=== PATIENT | female | born 1950 | race Caucasian/White ===

== ENCOUNTER 2023-03-22 06:18 | Inpatient (IN) ==
--- NOTE | 2023-03-16 11:58 | Anesthesiology Consultation ---
Date of Service March 16, 2023 Assessment & Plan (1) Encounter for pre-operative examination: Plan - awaiting surgeon ordered medical clearance. PAT testing to be faxed to PCP. - Per filler operator on 03/16/2023: No known infectious disease contacts, current i nfectious disease symptoms in past 10 days or COVID positive test result in the past 90 days. Chart Review Chart Review: Pending: Refer to Additional Notes / Consult section and Patient NOT seen in Pre Admission Testing History Surgery Operation Date: 03/22/23 07:45 Proposed Procedures p L1-L2 Decompression and Fusion with Spinal Cord Monitoring - Gabo Varela DO Height/Weight Height: 5 ft 1 in Weight: 78.471 kg Allergies Allergy/AdvReac Type Severity Reaction Status Date / Time Sulfa (Sulfonamide Allergy Unknown HIVES Verified 03/16/23 11:21 Antibiotics) Medications Home Medications Medication Instructions Recorded Confirmed Last Taken allopurinol 100 mg tablet 100 mg PO BID 02/19/23 03/16/23 02/19/23 aspirin 81 mg chewable tablet 81 mg PO QAM 02/19/23 03/16/23 02/19/23 bupropion HCl 150 mg tablet,12 hr 150 mg PO BID 02/19/23 03/16/23 02/19/23 sustained-release ezetimibe 10 mg tablet 10 mg PO QPM 02/19/23 03/16/23 02/19/23 lisinopril 10 mg tablet 10 mg PO QAM 02/19/23 03/16/23 02/19/23 simvastatin 40 mg tablet 40 mg PO HS 02/19/23 03/16/23 02/18/23 terbinafine HCl 250 mg tablet 250 mg PO QAM 02/19/23 03/16/23 02/19/23 baclofen 10 mg tablet 10 mg PO BID PRN Back Pain 02/22/23 03/16/23 Unknown diclofenac sodium 1 % topical gel 4 g topical UD PRN Pain 02/22/23 03/16/23 Unknown tramadol 50 mg tablet 50 mg PO TID PRN Pain 02/22/23 03/16/23 02/22/23 calcium 600 mg capsule 600 mg PO BID 03/16/23 03/16/23 Unknown omega-3 fatty acids 1,000 mg PO QPM 03/16/23 03/16/23 Unknown Past Medical History Medical History (Updated 03/16/23 @ 11:56 by Rosie Yi PA-C) CKD (chronic kidney disease) Depression Dyslipidemia Gout hx History of COVID-2020 Hypertension Lumbar disc herniation Toenail fungus improving with med- /f/u on mar 30 2023. Past Family History Family History Sister Family history of diabetes mellitus Brother Family history of diabetes mellitus Past Surgical History Surgical History H/O section x2 History of appendectomy History of cholecystectomy History of colonoscopy History of lumbar laminectomy History of right oophorectomy Social History Smoking Status: Former smoker Do You Dip or Chew Tobacco: No Smoking End Date: 25 yr ago Hx Alcohol Use: No Hx Substance Use: No substance use type: does not use Lab Results Anesthesia Preop Results Results Anesthesia Widget: WBC 10.83 K/ul (4.8-10.8) H 03/15/23 Hgb 12.4 g/dl (12.0-16.0) 03/15/23 Hct 36.7 % (37.0-47.0) L 03/15/23 Plt 243 K/uL (130-400) 03/15/23 Na 140 mmol/L (136-145) 03/15/23 K 4.1 mmol/L (3.5-5.1) 03/15/23 Cl 106 mmol/L (98-107) 03/15/23 CO2 27 mmol/L (21-32) 03/15/23 BUN 38 mg/dl (6-23) H 03/15/23 Creat 1.52 mg/dl (0.6-1.2) H 03/15/23 Glucose Level 104 mg/dl (70-99(Fasting)) H 03/15/23 PT 10.3 Seconds (9.0-12.0) 03/15/23 PTT 22.5 Seconds (21.0-31.0) 03/15/23 INR 0.9 (0.9-1.1) 03/15/23 Urine Color Yellow 03/15/23 Urine Appearance Slightly Cloudy (Clear) 03/15/23 Urine pH 5.5 (4.5-7.5) 03/15/23 Urine Specific [place] 1.020 (1.000-1.030) 03/15/23 Urine Protein Negative (Negative) 03/15/23 Urine Glucose (UA) Negative (Negative) 03/15/23 Urine Ketones Trace (Negative) H 03/15/23 Urine Blood Trace-intact (Negative) H 03/15/23 Urine Nitrite Negative (Negative) 03/15/23 Urine Bilirubin Negative (Negative) 03/15/23 Urine Urobilinogen Negative (Negative) 03/15/23 Urine Leukocyte Esterase 1+ (Negative) H 03/15/23 Urine WBC (Auto) 1-5 /hpf (0-5) 02/22/23 Urine RBC (Auto) 0-4 /hpf (0-4) 02/22/23 Urine Hyaline Casts (Auto) 0 /lpf (0-5) 02/22/23 Urine Epithelial Cells (Auto) >30 /lpf (0-5) H 02/22/23 Urine Bacteria (Auto) Negative (Negative) 02/22/23 Blood Type A Positive 03/15/23 Antibody Screen NEGATIVE 03/15/23 Testing Electrocardiogram Date: 03/15/23 NSR, rate 91 bpm Chest X-Ray Date: 03/15/23 No active disease in the chest Other Testing Abdomen pelvis CT 02/19/23 1. No bowel wall thickening or obstruction. 2. Colonic diverticulosis. No evidence for acute diverticulitis. 3. Prior cholecystectomy and appendectomy.
[~2023-03-22 06:18] MED LIST: ACETAMINOPHEN 500 MG TAB PO SCH; GABAPENTIN 300 MG CAP PO SCH; LR 60ML/HR IV SCH; SODIUM CHLORIDE 0.9% 1000ML IV SCH; ceFAZolin 2000MG 2,000 MG/15 ML SYR IV SCH
[2023-03-22] MEDS ORDERED: MIDAZOLAM HCL 1 MG/ML 2ML VIAL ONE (07:01)
[2023-03-22] MEDS ORDERED: PROMETHAZINE HCL 12.5 MG in SODIUM CHLORIDE 0.9% 50 ML IV PRN ×2 (07:01→10:53)
[2023-03-22] MEDS ORDERED: fentaNYL citrate PF 100 MCG/2 ML VIAL ONE (07:01)
[2023-03-22] MEDS ORDERED: fentaNYL citrate PF 100 MCG/2 ML VIAL IV PRN (07:01)
[2023-03-22] MEDS ORDERED: ATROPINE SULFATE 0.1 MG/ML 10ML SYR IV PRN (07:01)
[2023-03-22] MEDS ORDERED: ROCURONIUM BROMIDE 10 MG/ML 5 ML VIAL IV ONE (07:01)
[2023-03-22] MEDS ORDERED: PROPOFOL IV EMULSION 10 MG/ML 20 ML VIAL IV ONE (07:01)
[2023-03-22] MEDS ORDERED: NALOXONE HCL 0.4 MG/1 ML VIAL/CARP IV PRN ×2 (07:01→10:53)
[2023-03-22] MEDS ORDERED: ePHEDrine sulfate 50 MG/ML AMP IV PRN (07:01)
[2023-03-22] MEDS ORDERED: LIDOCAINE 2% 2 ML VIAL/AMP(20MG/ML) INFIL ONE (07:01)
[2023-03-22] MEDS ORDERED: KETAMINE 50 MG/5 ML SYRINGE ONE ×2 (07:04→09:57)
[2023-03-22] MEDS ORDERED: FAMOTIDINE/PF 20 MG/2 ML VIAL IV ONE (07:05)
[2023-03-22] MEDS ORDERED: BUPIVACAINE/EPINEPHRINE 0.25% 1:200,000 30 ML VIAL ONE (07:13)
[2023-03-22] MEDS ORDERED: ceFAZolin 330 MG/ML 1 GM VIAL ONE (07:13)
--- NOTE | 2023-03-22 07:53 | History & Physical Bridge Note ---
Date of Service March 22, 2023 History & Physical Bridge Note I have examined the patient, reviewed the History & Physical and in the interval since the performance of the History & Physical I have noted the following changes of clinical significance: no changes noted
--- NOTE | 2023-03-22 07:54 | History & Physical Report ---
Date of Service March 22, 2023 Assessment & Plan (1) Lumbar disc herniation with radiculopathy: Plan: L1-L2 decompression and fusion History of Present Illness Chief Complaint: Back and leg pain Primary Care Provider: Reggie Liz This is a 72-year-old female presents with chronic persistent back and leg pain after failing course of nonoperative care is here for surgical invention. Allergies Allergy/AdvReac Type Severity Reaction Status Date / Time Sulfa (Sulfonamide Allergy Unknown HIVES Verified 03/16/23 11:21 Antibiotics) Home Medications Medication Instructions Recorded Confirmed Type allopurinol 100 mg tablet 100 mg PO BID 02/19/23 03/22/23 History aspirin 81 mg chewable tablet 81 mg PO QAM 02/19/23 03/22/23 History bupropion HCl 150 mg tablet,12 hr 150 mg PO BID 02/19/23 03/22/23 History sustained-release ezetimibe 10 mg tablet 10 mg PO QPM 02/19/23 03/22/23 History lisinopril 10 mg tablet 10 mg PO QAM 02/19/23 03/22/23 History simvastatin 40 mg tablet 40 mg PO HS 02/19/23 03/22/23 History baclofen 10 mg tablet 10 mg PO BID PRN Back Pain 02/22/23 03/22/23 History diclofenac sodium 1 % topical gel 4 g topical UD PRN Pain 02/22/23 03/22/23 History tramadol 50 mg tablet 50 mg PO TID PRN Pain 02/22/23 03/22/23 History calcium 600 mg capsule 600 mg PO BID 03/16/23 03/22/23 History omega-3 fatty acids 1,000 mg PO QPM 03/16/23 03/22/23 History Past Med/Surg History Medical History (Updated 03/22/23 @ 07:53 by Gabo Varela DO) CKD (chronic kidney disease) Depression Dyslipidemia Gout hx History of COVID-2020 Hypertension Lumbar disc herniation Toenail fungus improving with med- /f/u on mar 30 2023. Surgical History H/O section x2 History of appendectomy History of cholecystectomy History of colonoscopy History of lumbar laminectomy History of right oophorectomy Family History Sister Family history of diabetes mellitus Brother Family history of diabetes mellitus Social History Smoking Status: Former smoker Tobacco Type: Cigarettes Smoking End Date: 25 yr ago; Do You Dip or Chew Tobacco: No; Hx Alcohol Use: No Hx Substance Use: No Preferred Language: Tamaz[place] Communication Ability: Effective Tube And Rod Straightener Required: No Beliefs That Will Affect Care: None Current Living Situation: Spouse and Family Current Living Situation Comment: daughter and great grandson current occupational status: retired Feels Safe at Home: Yes Assistive Devices: Glasses and Other Assistive Devices Comment: partial upper Physical Exam Physical Exam: Patient is alert and oriented Heart regular rhythm Lungs clear Results & Data Results & Data Vital Signs (Past 12 Hours) Vital Signs Temp Pulse Resp BP Pulse Ox O2 Del Method 03/22/23 06:46 36.6 C 92 H 20 132/81 99 Room Air
[2023-03-22] MEDS ORDERED: ONDANSETRON INJ 2 MG/ML 2 ML VIAL ONE ×2 (08:26→09:25)
[2023-03-22] MEDS ORDERED: DEXAMETHASONE SOD INJ 4 MG/ML VIAL ONE (08:26)
[2023-03-22] MEDS ORDERED: HYDROmorphone INJ 2 MG/ML SYR/VIAL ONE (08:37)
[2023-03-22] MEDS ORDERED: FLOSEAL HEMOSTATIC MATRIX 10ML TOP ONE (09:00)
[2023-03-22] MEDS ORDERED: SURGICEL ABSORB HEMOSTAT 2IN X 14IN TOP ONE (09:01)
[2023-03-22] MEDS ORDERED: SUGAMMADEX SODIUM 200 MG/2 ML VIAL IV ONE (09:24)
--- NOTE | 2023-03-22 09:41 | Operative Report ---
Post Operative Report Pre & Post Diagnosis Operation Date: 03/22/23 07:45 Pre-Op Diagnosis: Intervertebral Disc Disorders with Radiculopathy Post-Op Diagnosis: Intervertebral Disc Disorders with Radiculopathy I identified the patient and participated in the time-out.: Yes Procedure Operation Date: 03/22/23 07:45 Actual Procedures 1. Lumbar decompression bilaterally facetectomies and foraminotomies L1-L2. #2 posterior spinal fusion L1-L2. #3 placed posterior instrumentation L1-L2. #4 placement interbody fusion L1-L2. #5 placement of Spira 11 x 26 mm cage at L1- L2. #6 placement locally harvested morselized autograft and posterior gutters. #7 placement of I factor in the interbody space and infuse collagen sponge bone mass graft in the posterior lateral gutters. Surgeon Gabo Varela, Pig Caster none Estimated Blood Loss 200 Findings Consistent with Post-Op Diagnosis Specimens None Indications This is a 72-year-old female presents with above-mentioned diagnosis with failing course of nonoperative care is here for surgical invention Description of Procedure Patient was met with identified informed consent obtained. Patient was then taken to the operative suite underwent a patient placed in a prone position on the [place] table top [place] frame. All bony prominences well-padded eyes inspected to ensure no external pressure placed upon the. This point the lumbar spine was prepped and draped in a sterile fashion. Sharp dissection with the assistance of Bovie cautery to form down to and exposing the lamina transverse processes of L1-L2. From caudal to cephalad fashion complete laminectomy of L1 was performed including bilaterally facetectomies and foraminotomies identifying a massive disc herniation occupying the lateral recess entire foramen of L1-2 on the left. This did require complete facetectomy to adequately and safely with identified removal of fragments. After complete decompression and removal of discrimination pedicle screws were placed in L1-L2 bilaterally with assistance of fluoroscopy and the properly sized yuko placed. By way of transforaminal approach on the left pleat discectomy was performed endplates curetted to subcortical bleeding bone and a 11 x 26 mm Spira cage with I factor tapped in position. The rods then compressed locked in final position bilaterally. The transverse processes of L1 and L2 burred to subcortically bone. Infuse collagen sponge bone mass graft placed in the posterior gutters. 15 round TARA inserted. The incision was then closed with 1 Vicryl to fascia 2-0 Vicryl subcutaneously and 4 Monocryl for final skin closure. Steri-Strips sterile dressing placed. Patient awakened taken to PACU in stable condition. Please note spinal cord monitoring was utilized at the procedure no changes noted. I attest to the content of the Intraoperative Record and any orders documented therein. Any exceptions are noted below.
--- NOTE | 2023-03-22 10:34 | Anesthesiology Progress Note ---
Date of Service March 22, 2023 Anesthesia Post Procedure Vital Signs Vital Signs: Temp Pulse Pulse Resp BP BP Pulse Ox 03/22/23 10:30 36.4 C L 83 14 116/60 98 03/22/23 10:20 78 14 116/68 98 03/22/23 10:10 80 14 122/71 98 03/22/23 10:00 80 14 122/65 100 03/22/23 09:50 80 16 125/65 99 03/22/23 09:48 36.3 C L 83 16 119/76 99 03/22/23 06:46 36.6 C 92 H 20 132/81 99 O2 Del Method O2 Flow Rate 03/22/23 10:30 Nasal Cannula 3 03/22/23 10:20 Nasal Cannula 3 03/22/23 10:10 Oxymask 6 03/22/23 10:00 Oxymask 6 03/22/23 09:50 Oxymask 6 03/22/23 09:48 Oxymask 6 03/22/23 06:46 Room Air Pain Intensity Back: Pain Intensity: 5 Transfer of Care Handoff Completed per policy Notes Mental Status: alert / awake / arousable Patient Amnestic to Procedure: Yes Nausea / Vomiting: adequately controlled Pain: adequately controlled Airway Patency, RR, SpO2: stable & adequate BP & HR: stable & adequate Hydration State: stable & adequate Anesthetic Complications: no major complications apparent and Pt Satisfied with anesthetic care
[2023-03-22] MEDS ORDERED: ONDANSETRON 4 MG OD TAB PO PRN (10:53)
[2023-03-22] MEDS ORDERED: MAGNESIUM HYDROXIDE SUSP 30 ML UDC PO PRN (10:53)
[2023-03-22] MEDS ORDERED: ALUMINUM/MAGNESIUM SUSP 30 ML UDC PO PRN (10:53)
[2023-03-22] MEDS ORDERED: LORazepam 2 MG/1 ML VIAL IV PRN (10:53)
[2023-03-22] MEDS ORDERED: DO NOT ADMINISTER PNEUMOCOCCAL VACCINE PRN (10:53)
[2023-03-22] MEDS ORDERED: DO NOT ADMINISTER FLU VACCINE PRN (10:53)
[2023-03-22] MEDS ORDERED: hydrOXYzine HCl 25 MG TAB PO PRN (10:53)
[2023-03-22] MEDS ORDERED: METOCLOPRAMIDE HCL INJ 5 MG/ML 2 ML VIAL IV PRN (10:53)
[2023-03-22] MEDS ORDERED: HYDROmorphone INJ 0.5 MG/0.5 ML SYR IV PRN (10:53)
[2023-03-22] MEDS ORDERED: FAMOTIDINE 20 MG TAB PO PRN (10:53)
[2023-03-22] MEDS ORDERED: SOD PHOSPHATE/SOD BIPHOSPHATE ENEMA 132 ML BTL PR PRN (10:53)
[2023-03-22] MEDS ORDERED: diphenhydrAMINE Capsule 25 MG CAP PO PRN (10:53)
[2023-03-22] MEDS ORDERED: LORazepam 0.5 MG TAB PO PRN (10:53)
[2023-03-22] MEDS ORDERED: ONDANSETRON INJ 2 MG/ML 2 ML VIAL IV PRN (10:53)
[2023-03-22] MEDS ORDERED: bisacodyL 10 MG SUPP PR PRN (10:53)
[2023-03-22] MEDS: LACTATED RINGER'S 1,000 ML IV SCH ×2 (11:05→19:56)
--- NOTE | 2023-03-22 11:07 | Consultation ---
Date of Consultation March 22, 2023 Assessment & Plan (1) Lumbar disc herniation with radiculopathy: (2) Hypertension: (3) Dyslipidemia: (4) Depression: (5) Gout: (6) VANESSA (acute kidney injury): Plan Ms. Duran is a 72 year old female that presents to the [facility] for planned surgical procedure under the care of Dr. Varela; decompression and fusion of L1-L2 after failed conservative management as an outpatient. Intraoperatively, EBL 200 mL. Additional past medical history includes HTN, HLD, depression, and gout. Patient underwent additional decompression and fusion L4-L5 10 years ago under the care of Dr. Gracia. AVNESSA noted on pre op labs from 03/15/23; creatinine 1.53. Up until surgery patient was taking tramadol and Voltaren gel for conservative treatment measures. Patient denies headache, dizziness, visual or auditory changes, nausea, vomiting, diarrhea, abdominal pain, recent falls or trauma. Patient patient sitting upright in her hospital bed in no apparent distress. AAOx4. Able to answer questions appropriately. TARA drain x1 with morgan red bloody output. Tolerated clear liquid diet. Is not passing gas, but has Ax4 bowel sounds. Lumbar disc herniation with radiculopathy: POD#0 s/p decompression and fusion L1-L2 under the care of Dr. Varela. Per ortho for pain control, wound care, anticoagulation and activities. Monitor H&H, EBL 200 mL; baseline Hgb from 03/15/23 pre op 12.4 continue incentive spirometry, demonstrated appropriate use PT/OT when appropriate HTN: Takes lisinopril; will hold due to VANESSA and soft post op BP Post op BP 96/52 VANESSA: Creatinine pre op 1.53; will trend in AM IV Fluids infusing post op Hold nephrotoxic agents; including Lisinopril HLD: Takes Zetia and simvastatin Depression: Takes Wellbutrin; continue Gout: Takes allopurinol; continue Disposition: PCP: Dr. Reggie Liz CODE STATUS: Full code VTE prophylaxis: Per admitting team I spent a total of 60 minutes coordinating, documenting, and providing care for this patient excluding time spent in the performance of separately billed services. All of the aforementioned completed while collaborating with the assigned attending physician for a full treatment plan. Please see their addendum for further details. Supervising Physician Co-Signing Physician Notes 72yoF with PMhx significant for HTN, HLD, Gout and Depression s/p decompression and fusion L1-L2. Pt resting comfortably, states her pain is well controlled. VANESSA with hypotension noted- IV fluids and holding home DAVID Continue other home medications for Gout, Depression and HLD. Otherwise as above. History of Present Illness Requesting Physician: Dr. Varela Reason for Consultation: post op medical management Attending Physician: Gabo Varela, DO History of Present Illness Ms. Duran is a 72 year old female that presents to the [facility] for planned surgical procedure under the care of Dr. Varela; decompression and fusion of L1-L2 after failed conservative management as an outpatient. Intraoperatively, EBL 200 mL. Additional past medical history includes HTN, HLD, depression, and gout. Patient underwent additional decompression and fusion L4-L5 10 years ago under the care of Dr. Garcia. VANESSA noted on pre op labs from 03/15/23; creatinine 1.53. Up until surgery patient was taking tramadol and Voltaren gel for conservative treatment measures. Patient denies headache, dizziness, visual or auditory changes, nausea, vomiting, diarrhea, abdominal pain, recent falls or trauma. Patient patient sitting upright in her hospital bed in no apparent distress. AAOx4. Able to answer questions appropriately. TARA drain x1 with morgan red bloody output. Tolerated clear liquid diet. Is not passing gas, but has Ax4 bowel sounds. [facility] hospitalist service was consulted for postoperative medical management. We are available 28/02 via [place] text for any additional assistance or information. Thank you kindly for this consultation. Allergies Allergy/AdvReac Type Severity Reaction Status Date / Time Sulfa (Sulfonamide Allergy Unknown HIVES Verified 03/16/23 11:21 Antibiotics) Home Medications Medication Instructions Recorded Confirmed Type allopurinol 100 mg tablet 100 mg PO BID 02/19/23 03/22/23 History aspirin 81 mg chewable tablet 81 mg PO QAM 02/19/23 03/22/23 History bupropion HCl 150 mg tablet,12 hr 150 mg PO BID 02/19/23 03/22/23 History sustained-release ezetimibe 10 mg tablet 10 mg PO QPM 02/19/23 03/22/23 History lisinopril 10 mg tablet 10 mg PO QAM 02/19/23 03/22/23 History simvastatin 40 mg tablet 40 mg PO HS 02/19/23 03/22/23 History baclofen 10 mg tablet 10 mg PO BID PRN Back Pain 02/22/23 03/22/23 History diclofenac sodium 1 % topical gel 4 g topical UD PRN Pain 02/22/23 03/22/23 History tramadol 50 mg tablet 50 mg PO TID PRN Pain 02/22/23 03/22/23 History calcium 600 mg capsule 600 mg PO BID 03/16/23 03/22/23 History omega-3 fatty acids 1,000 mg PO QPM 03/16/23 03/22/23 History Patient History Medical History (Updated 03/22/23 @ 14:00 by HILDA Newby) VANESSA (acute kidney injury) CKD (chronic kidney disease) Depression Dyslipidemia Gout hx History of COVID-2020 Hypertension Lumbar disc herniation Toenail fungus improving with med- /f/u on mar 30 2023. Surgical History H/O section x2 History of appendectomy History of cholecystectomy History of colonoscopy History of lumbar laminectomy History of right oophorectomy Family History Sister Family history of diabetes mellitus Brother Family history of diabetes mellitus Social History Smoking Status: Former smoker Tobacco Type: Cigarettes Smoking End Date: 25 yr ago; Do You Dip or Chew Tobacco: No; Hx Alcohol Use: No Hx Substance Use: No Preferred Language: Sinhala Communication Ability: Effective Clinical Phlebotomist Required: No Beliefs That Will Affect Care: None Current Living Situation: Spouse and Family Current Living Situation Comment: daughter and great grandson current occupational status: retired Feels Safe at Home: Yes Assistive Devices: Glasses and Other Assistive Devices Comment: partial upper Review of Systems Review of Systems: Neuro: (-) Falls, trauma, slurred speech HEENT: (-) DAVIS, dizziness, dysphagia, visual or auditory changes CV: (-) CP, palpitations, swelling Resp: (-) SOB GI: (-) appetite changes, N/V/D, bowel changes : (-) urinary changes Skin: (-) rashes Psych: (-) anxiety, depression Physical Exam Physical Exam: Neuro: AAOx4, PERRLA, no aphagia, memory changes, CNII-XII grossly intact (-) neuropathy HEENT: head normocephalic, moist mucus membranes CV: S1/S2, (-) M/G/R, (-) edema, cap refill < 3 seconds Resp: Lungs CTA in all zavala. On RA GI: Abdomen S/NT/ND, Ax4 bowel sounds, (-) CVA tenderness Musculoskeletal: 5/5 B/L UE strength, 5/5 B/L LE strength. No gait disturbance Skin: (-) rashes , (-) erythema. Lower back vertical incision with intact dressing. Psych: euthymic mood Results & Data Vital Signs (Past 12 Hours) Vital Signs Temp Pulse Pulse Resp BP BP Pulse Ox 03/22/23 10:30 36.4 C L 83 14 116/60 98 03/22/23 10:20 78 14 116/68 98 03/22/23 10:10 80 14 122/71 98 03/22/23 10:00 80 14 122/65 100 03/22/23 09:50 80 16 125/65 99 03/22/23 09:48 36.3 C L 83 16 119/76 99 03/22/23 06:46 36.6 C 92 H 20 132/81 99 O2 Del Method O2 Flow Rate 03/22/23 10:30 Nasal Cannula 3 03/22/23 10:20 Nasal Cannula 3 03/22/23 10:10 Oxymask 6 03/22/23 10:00 Oxymask 6 03/22/23 09:50 Oxymask 6 03/22/23 09:48 Oxymask 6 03/22/23 06:46 Room Air Diagnostic Findings Lumbar Spine X-Ray 03/22/23 00:00 FL lumbar spine 2-3V CLINICAL HISTORY: L1-L2 DECOMP AND FUSION COMPARISON STUDY: Lumbar spine MRI 02/22/2023. FLUOROSCOPY TIME: 24 seconds FLUOROSCOPY IMAGES: 2 Ka,r: 16.4 mGy FINDINGS: Posterior decompression and fusion at L1-L2 with pedicle screws and rods. The hardware appears intact. The disc spacer is in place. IMPRESSION: Fluoroscopic assistance as above. ACT 112: Negative or not required by law. Electronically signed by: Enrique Nielsen M.D. 03/22/2023 12:30 PM
--- NOTE | 2023-03-22 12:32 | Fluoroscopy Report ---
FL lumbar spine 2-3V CLINICAL HISTORY: L1-L2 DECOMP AND FUSION COMPARISON STUDY: Lumbar spine MRI 02/22/2023. FLUOROSCOPY TIME: 24 seconds FLUOROSCOPY IMAGES: 2 Ka,r: 16.4 mGy FINDINGS: Posterior decompression and fusion at L1-L2 with pedicle screws and rods. The hardware appe ars intact. The disc spacer is in place. IMPRESSION: Fluoroscopic assistance as above. ACT 112: Negative or not required by law. Electronically signed by: Enrique Nielsen M.D. 03/22/2023 12:30 PM
[2023-03-22] MEDS: oxyCODONE HCL IR 5 MG TAB (IMMEDIATE RELEASE) PO PRN ×3 (13:21→23:54)
[2023-03-22] MEDS ORDERED: ACETAMINOPHEN 1,000 MG/100 ML VIAL IV PRN (14:00)
[2023-03-22] MEDS: HYDROmorphone INJ 1 MG/ML SYRINGE IV PRN (16:46)
[2023-03-22] MEDS: ceFAZolin 2000MG 2,000 MG/15 ML SYR IV SCH ×2 (16:46→23:17)
[2023-03-22] MEDS: SIMVASTATIN 40 MG TAB PO SCH (19:54)
[2023-03-22] MEDS: DOCUSATE SODIUM/SENNA 50/8.6MG TAB PO SCH (19:55)
[2023-03-22] MEDS: CALCIUM CARBONATE 1250MG TAB PO SCH (19:55)
[2023-03-22] MEDS: EZETIMIBE 10 MG TAB PO SCH (19:55)
[2023-03-22] MEDS: allopurinoL 100 MG TAB PO SCH (19:55)
[2023-03-22] MEDS: buPROPion SR 150 MG TABCR PO SCH (19:56)
[2023-03-23] MEDS: HYDROmorphone INJ 1 MG/ML SYRINGE IV PRN (02:11)
[2023-03-23] MEDS: POLYETHYLENE (MIRALAX) 17 GM PACK PO SCH ×4 (06:26→23:07)
[2023-03-23 07:38] LABS: Basophils # (auto) 0.01 K/uL (0-0.2); Basophils % (auto) 0.1 %; Eosinophils # (auto) 0.01 K/uL (0-0.50); Eosinophils % (auto) 0.1 %; Hematocrit (blood only) 28.1 % (37.0-47.0); Hemoglobin 9.5 g/dl (12.0-16.0); Immature Granulocytes # (auto) 0.08 K/uL (0.01-0.20); Immature Granulocytes % (auto) 0.7 %; Lymphocytes # (auto) 1.41 K/uL (1.2-3.4); Lymphocytes % (auto) 12.8 %; Mean Corpuscular Hemoglobin 31.6 pg (25.0-34.0); Mean Corpuscular Hgb Conc 33.8 g/dL (32.0-36.0); Mean Corpuscular Volume 93.4 fL (80.0-100.0); Mean Platelet Volume 10.4 fL (9.4-12.4); Monocytes % (auto) 5.4 %; Neutrophils # (auto) 8.94 K/uL (1.40-6.50); Neutrophils % (auto) 80.9 %; Platelet Count 213 K/uL (130-400); RDW Coefficient of Variation 13.2 % (11.5-14.5); RDW Standard Deviation 45.9 fL (36.4-46.3); Red Blood Count 3.01 M/uL (4.20-5.40); White Blood Count 11.05 K/ul (4.8-10.8)
[2023-03-23 07:56] LABS: BUN Creatinine Ratio 26.5 (10-20); Calcium 8.7 mg/dl (8.6-10.3); Creatinine Clr Calc Pharmacy 49.3 ml/min; Est GFR (African American) 66.8 ml/min; Est GFR (Non-African American) 57.6 ml/min; Potassium 4.4 mmol/L (3.5-5.1)
[2023-03-23] MEDS: LACTATED RINGER'S 1,000 ML IV SCH (08:00)
--- NOTE | 2023-03-23 08:00 | Hospitalist Progress Note ---
Date of Service March 23, 2023 Assessment & Plan (1) Lumbar disc herniation with radiculopathy: (2) Hypertension: (3) Dyslipidemia: (4) Depression: (5) Gout: (6) VANESSA (acute kidney injury): Plan Ms. Duran is a 72 year old female that presents to the [facility] for planned surgical procedure under the care of Dr. Varela; decompression and fusion of L1-L2 after failed conservative management as an outpatient. Intraoperatively, EBL 200 mL. Additional past medical history includes HTN, HLD, depression, and gout. Patient underwent additional decompression and fusion L4-L5 10 years ago under the care of Dr. Garcia. VANESSA noted on pre op labs from 03/15/23; creatinine 1.53. Up until surgery patient was taking tramadol and Voltaren gel for conservative treatment measures. Lumbar disc herniation with radiculopathy: s/p decompression and fusion L1-L2 under the care of Dr. Varela. Per ortho for pain control, wound care, anticoagulation and activities. continue incentive spirometry, demonstrated appropriate use PT/OT when appropriate HTN: Takes lisinopril; will hold due to VANESSA and lower BP Post op BP 96/52 now 102/62 VANESSA: Creatinine pre op 1.53; now Cr back to baseline (<1) received IV Fluids post op Hold nephrotoxic agents; including Lisinopril HLD: Takes Zetia and simvastatin Depression: Takes Wellbutrin; continue Gout: Takes allopurinol; continue Disposition: PCP: Dr. Reggie Liz CODE STATUS: Full code VTE prophylaxis: Per admitting team Admission and Anticipated Discharge Date Admission Date: March 22, 2023 Subjective Pt seen in follow up of med consult for s/p lumbar spinal surgery Currently sitting up in chair in NAD reports some back pain, especially when standing up, but says when walking does not have much pain Denies any fever, chills, chest pain, shortness of breath or abd. pain Review of Systems Review of Systems: All systems reviewed & are unremarkable except as noted in Subjective Physical Exam Physical Exam: General: elderly F in NAD HEENT: head normocephalic, moist mucus membranes CV: S1/S2, (-) M/G/R, (-) edema Resp: Lungs CTA in all zavala. On RA GI: Abdomen S/NT/ND, Ax4 bowel sounds, (-) CVA tenderness Musculoskeletal: 5/5 B/L UE strength, 5/5 B/L LE strength. No gait disturbance Neuro: AAOx4, PERRL, speech fluent, no facial asymmetry, moves extremities Skin: (-) rashes , (-) erythema. Lower back w/intact dressing. Psych: euthymic mood Results & Data Results & Data Vital Signs (Past 12 Hours) Vital Signs Temp Pulse Resp BP Pulse Ox O2 Del Method 03/23/23 07:32 36.9 C 89 15 102/62 99 Room Air 03/23/23 03:32 36.8 C 95 H 18 124/68 95 Room Air 03/22/23 23:00 36.8 C 97 H 18 125/74 93 Room Air 03/22/23 20:31 Room Air Laboratory Results 03/23/23 03/23/23 Range/Units 06:57 06:57 WBC 11.05 H (4.8-10.8) K/ul RBC 3.01 L (4.20-5.40) M/uL Hgb 9.5 L (12.0-16.0) g/dl Hct 28.1 L (37.0-47.0) % MCV 93.4 (80.0-100.0) fL MCH 31.6 (25.0-34.0) pg MCHC 33.8 (32.0-36.0) g/dL RDW Std Deviation 45.9 (36.4-46.3) fL RDW Coeff of Agnieszka 13.2 (11.5-14.5) % Plt Count 213 (130-400) K/uL MPV 10.4 (9.4-12.4) fL Immature Gran % (Auto) 0.7 % Neut % (Auto) 80.9 % Lymph % (Auto) 12.8 % Yates % (Auto) 5.4 % Eos % (Auto) 0.1 % Baso % (Auto) 0.1 % Neut # (Auto) 8.94 H (1.40-6.50) K/uL Lymph # (Auto) 1.41 (1.2-3.4) K/uL Yates # (Auto) 0.60 H (0.11-0.59) K/uL Eos # (Auto) 0.01 (0-0.50) K/uL Baso # (Auto) 0.01 (0-0.2) K/uL Immature Gran # (Auto) 0.08 (0.01-0.20) K/uL Sodium 136 (136-145) mmol/L Potassium 4.4 (3.5-5.1) mmol/L Chloride 105 (98-107) mmol/L Carbon Dioxide 27 (21-32) mmol/L Anion Gap 4 (3-11) BUN 26 H (6-23) mg/dl Creatinine 0.98 (0.6-1.2) mg/dl Est Cr Clr Drug Dosing 49.3 ml/min Est GFR ( Amer) 66.8 ml/min Est GFR (Non-Af Amer) 57.6 ml/min BUN/Creatinine Ratio 26.5 H (10-20) Glucose 132 H (70-99(Fasting)) mg/dl Calcium 8.7 (8.6-10.3) mg/dl Medications Administered Current Inpatient Medications Acetaminophen (Acetaminophen 500 Mg Tab) 1,000 mg PO Q8H PRN PRN Reason: MILD Pain Scale 1,2,3 & Pre PT Stop: 04/21/23 13:59 Al Hydrox/Mg Hydrox/Simethicone (Aluminum/Magnesium Susp 30 Ml Udc) 30 ml PO Q6H PRN PRN Reason: Dyspepsia Stop: 04/21/23 10:52 Allopurinol (Allopurinol 100 Mg Tab) 100 mg PO BID [facility] Stop: 04/21/23 20:59 Last Admin: 03/22/23 19:55 Dose: 100 mg Aspirin (Aspirin 81 Mg Ectab) 81 mg PO QAM [facility] Stop: 04/22/23 08:59 Bisacodyl (Bisacodyl 10 Mg Supp) 10 mg VT DAILY PRN PRN Reason: Constipation Stop: 04/21/23 10:52 Bupropion HCl (Bupropion Sr 150 Mg Tabcr) 150 mg PO BID [facility] Stop: 04/21/23 20:59 Last Admin: 03/22/23 19:56 Dose: 150 mg Calcium Carbonate (Calcium Carbonate 1250mg Tab) 1,250 mg PO BID [facility] Stop: 04/21/23 20:59 Last Admin: 03/22/23 19:55 Dose: 1,250 mg Diphenhydramine HCl (Diphenhydramine Capsule 25 Mg Cap) 25 mg PO Q6H PRN PRN Reason: Allergic Rhinitis/Insomnia Stop: 04/21/23 10:52 Ezetimibe (Ezetimibe 10 Mg Tab) 10 mg PO QPM EDNA Stop: 04/21/23 20:59 Last Admin: 03/22/23 19:55 Dose: 10 mg Famotidine (Famotidine 20 Mg Tab) 20 mg PO Q12H PRN PRN Reason: Dyspepsia Stop: 04/21/23 10:52 Hydromorphone HCl (Hydromorphone Inj 0.5 Mg/0.5 Ml Syr) 0.5 mg IV Q3H PRN PRN Reason: MODERATE Pain (Scale 4,5,6) & Pre PT Stop: 04/05/23 10:52 Hydromorphone HCl (Hydromorphone Inj 1 Mg/Ml Syringe) 1 mg IV Q3H PRN PRN Reason: SEVERE Pain (Scale 7,8,9,10) Stop: 04/05/23 10:52 Last Admin: 03/23/23 02:11 Dose: 1 mg Hydroxyzine HCl (Hydroxyzine Hcl 25 Mg Tab) 25 mg PO Q8H PRN PRN Reason: Anxiety Stop: 04/21/23 10:52 Lactated Ringer's (Lr) 1,000 mls @ 100 mls/hr IV .Q10H EDNA Stop: 04/21/23 10:52 Last Infusion: 03/23/23 06:15 Dose: Infused Promethazine HCl 12.5 mg/ (Sodium Chloride) 50.5 mls @ 202 mls/hr IV Q6H PRN PRN Reason: Nausea &/or Vomiting Stop: 04/21/23 10:52 Acetaminophen (Ofirmev) 1,000 mg in 100 mls @ 400 mls/hr IV Q8H PRN PRN Reason: Pain Rating 1-3 & Pre PT Stop: 03/25/23 13:59 Dexamethasone 6 mg/ Syringe 1.5 mls @ 1 mls/min IV DAILY E[facility] Stop: 03/25/23 09:02 Influenza Virus Vaccine Quadrival (Do Not Administer Flu Vaccine) 1 each N/A PRN PRN PRN Reason: Notification Stop: 04/21/23 10:52 Lisinopril (Lisinopril 10 Mg Tab) 10 mg PO QAM [facility] Stop: 04/22/23 08:59 Lorazepam (Lorazepam 0.5 Mg Tab) 0.5 mg PO Q8H PRN PRN Reason: Sedation/Anxiety Stop: 04/21/23 10:52 Lorazepam (Lorazepam 2 Mg/1 Ml Vial) 0.5 mg IV Q8H PRN PRN Reason: Sedation/Anxiety Stop: 04/21/23 10:52 Magnesium Hydroxide (Magnesium Hydroxide Susp 30 Ml Udc) 30 ml PO Q24H PRN PRN Reason: Constipation Stop: 04/21/23 10:52 Metoclopramide HCl (Metoclopramide Hcl Inj 5 Mg/Ml 2 Ml Vial) 10 mg IV Q6H PRN PRN Reason: Nausea &/or Vomiting Stop: 04/21/23 10:52 Naloxone HCl (Naloxone Hcl 0.4 Mg/1 Ml Vial/Carp) 0.1 mg IV Q5M PRN PRN Reason: Oversedation/Resp depression Stop: 04/21/23 10:52 Ondansetron HCl (Ondansetron Inj 2 Mg/Ml 2 Ml Vial) 4 mg IV Q6H PRN PRN Reason: Nausea &/or Vomiting Stop: 04/21/23 10:52 Ondansetron HCl (Ondansetron 4 Mg Od Tab) 4 mg PO Q6H PRN PRN Reason: Nausea Stop: 04/21/23 10:52 Oxycodone HCl (Oxycodone Hcl Ir 5 Mg Tab (Immediate Release)) 5 - 10 mg PO Q4H PRN PRN Reason: Pain & Pre PT Stop: 04/05/23 10:52 Last Admin: 03/22/23 23:54 Dose: 10 mg Pneumococcal Polyvalent Vaccine (Do Not Administer Pneumococcal Vaccine) 1 each N/A PRN PRN PRN Reason: Notification Stop: 04/21/23 10:52 Polyethylene Glycol (Polyethylene (Miralax) 17 Gm Pack) 17 gm PO Q6 EDNA Stop: 04/22/23 05:59 Last Admin: 03/23/23 06:26 Dose: 17 gm Senna/Docusate Sodium (Docusate Sodium/Senna 50/8.6mg Tab) 2 tab PO HS EDNA Stop: 04/21/23 20:59 Last Admin: 03/22/23 19:55 Dose: 2 tab Simvastatin (Simvastatin 40 Mg Tab) 40 mg PO HS EDNA Stop: 04/21/23 20:59 Last Admin: 03/22/23 19:54 Dose: 40 mg Sodium Biphosphate/Sodium Phosphate (Sod Phosphate/Sod Biphosphate Enema 132 Ml Btl) 132 ml VT ONE PRN PRN Reason: Constipation Stop: 04/21/23 10:52 Tramadol HCl (Tramadol Hcl 50 Mg Tablet) 50 - 100 mg PO Q4H PRN PRN Reason: Moderate-Severe pain & Pre PT Stop: 04/21/23 10:52
[2023-03-23] MEDS: CALCIUM CARBONATE 1250MG TAB PO SCH ×2 (08:31→20:00)
[2023-03-23] MEDS: allopurinoL 100 MG TAB PO SCH ×2 (08:31→20:02)
[2023-03-23] MEDS: dexAMETHasone 6 MG in SYRINGE 0 ML IV SCH (08:31)
[2023-03-23] MEDS: buPROPion SR 150 MG TABCR PO SCH ×2 (08:31→20:01)
[2023-03-23] MEDS: ASPIRIN 81 MG ECTAB PO SCH (08:31)
--- NOTE | 2023-03-23 08:31 | Orthopedic Progress Note ---
Date of Service March 23, 2023 Assessment & Plan (1) Lumbar disc herniation with radiculopathy: Plan: At this time we will initiate physical therapy monitor TARA output hopefully discharge home in the next few days. Admission and Anticipated Discharge Date Admission Date: March 22, 2023 Subjective Back pain controlled leg pain markedly improved Physical Exam Physical Exam: Patient is in the chair at the bedside. She is comfortable. Is constricted testing. Results & Data Vital Signs (Past 12 Hours) Vital Signs Temp Pulse Resp BP Pulse Ox O2 Del Method 03/23/23 07:32 36.9 C 89 15 102/62 99 Room Air 03/23/23 03:32 36.8 C 95 H 18 124/68 95 Room Air 03/22/23 23:00 36.8 C 97 H 18 125/74 93 Room Air 03/22/23 20:31 Room Air
[2023-03-23] MEDS ORDERED: lisinopril 10 MG TAB PO SCH (09:00)
[2023-03-23] MEDS: oxyCODONE HCL IR 5 MG TAB (IMMEDIATE RELEASE) PO PRN ×2 (09:21→19:59)
[2023-03-23] MEDS: ACETAMINOPHEN 500 MG TAB PO PRN (14:57)
[2023-03-23] MEDS: EZETIMIBE 10 MG TAB PO SCH (20:00)
[2023-03-23] MEDS: SIMVASTATIN 40 MG TAB PO SCH (20:00)
[2023-03-23] MEDS: DOCUSATE SODIUM/SENNA 50/8.6MG TAB PO SCH (20:01)
[2023-03-24] MEDS: traMADol HCL 50 MG TABLET PO PRN ×3 (00:24→21:52)
[2023-03-24] MEDS: POLYETHYLENE (MIRALAX) 17 GM PACK PO SCH ×2 (05:47→12:38)
[2023-03-24 08:01] LABS: Hematocrit (blood only) 27.9 % (37.0-47.0); Hemoglobin 9.6 g/dl (12.0-16.0); Mean Corpuscular Hemoglobin 32.4 pg (25.0-34.0); Mean Corpuscular Hgb Conc 34.4 g/dL (32.0-36.0); Mean Corpuscular Volume 94.3 fL (80.0-100.0); Mean Platelet Volume 10.6 fL (9.4-12.4); Platelet Count 219 K/uL (130-400); RDW Coefficient of Variation 13.2 % (11.5-14.5); RDW Standard Deviation 46.3 fL (36.4-46.3); Red Blood Count 2.96 M/uL (4.20-5.40); White Blood Count 10.54 K/ul (4.8-10.8)
--- NOTE | 2023-03-24 08:11 | Orthopedic Progress Note ---
Date of Service March 24, 2023 Assessment & Plan (1) Lumbar disc herniation with radiculopathy: Plan: Patient is stable postoperative day #2. We can continue with pain control. She is on GI DVT prophylaxis and will ambulate with physical therapy today. If all goes well we will get her home tomorrow morning. Admission and Anticipated Discharge Date Admission Date: March 22, 2023 Subjective Patient was seen bedside in room 383. She was somewhat nauseated overnight. She thinks the pain medication was too strong. She does have pain in the back but the legs are doing much better. She has not vomited. She denies any other numbness, tingling, paresthesias Physical Exam Physical Exam: On exam she is alert and oriented. She is sitting comfortably in her chair her strength and sensation are both intact. Her abdomen soft and nontender her calves are supple nontender. Her TARA drain is in place and holding suction. Results & Data Vital Signs (Past 12 Hours) Vital Signs Temp Pulse Resp BP Pulse Ox O2 Del Method 03/24/23 07:12 36.9 C 80 15 121/77 97 Room Air
[2023-03-24 08:33] LABS: BUN Creatinine Ratio 29.6 (10-20); Calcium 9.2 mg/dl (8.6-10.3); Creatinine Clr Calc Pharmacy 49.3 ml/min; Est GFR (African American) 66.8 ml/min; Est GFR (Non-African American) 57.6 ml/min; Magnesium 2.1 mg/dl (1.7-2.4); Potassium 4.2 mmol/L (3.5-5.1)
[2023-03-24] MEDS: CALCIUM CARBONATE 1250MG TAB PO SCH ×2 (08:54→20:49)
[2023-03-24] MEDS: ASPIRIN 81 MG ECTAB PO SCH (08:54)
[2023-03-24] MEDS: dexAMETHasone 6 MG in SYRINGE 0 ML IV SCH (08:54)
[2023-03-24] MEDS: buPROPion SR 150 MG TABCR PO SCH ×2 (08:54→20:49)
[2023-03-24] MEDS: allopurinoL 100 MG TAB PO SCH ×2 (08:54→20:48)
--- NOTE | 2023-03-24 11:43 | Hospitalist Progress Note ---
Date of Service March 24, 2023 Assessment & Plan (1) Lumbar disc herniation with radiculopathy: (2) Hypertension: (3) Dyslipidemia: (4) Depression: (5) Gout: (6) VANESSA (acute kidney injury): Plan Ms. Duran is a 72 year old female that presents to the [facility] for planned surgical procedure under the care of Dr. Varela; decompression and fusion of L1-L2 after failed conservative management as an outpatient. Intraoperatively, EBL 200 mL. Additional past medical history includes HTN, HLD, depression, and gout. Patient underwent additional decompression and fusion L4-L5 10 years ago under the care of Dr. Garcia. VANESSA noted on pre op labs from 03/15/23; creatinine 1.53. Up until surgery patient was taking tramadol and Voltaren gel for conservative treatment measures. Lumbar disc herniation with radiculopathy: s/p decompression and fusion L1-L2 under the care of Dr. Varela. Per ortho for pain control, wound care, anticoagulation and activities. continue incentive spirometry, demonstrated appropriate use PT/OT when appropriate Acute blood loss anemia/ vs. dilutional pre-op hgb 12, post op 9.5 current hgb 9.6 - stable from yesterday HTN: Takes lisinopril; will hold due to VANESSA and lower BP Post op BP 96/52 now 121/77 VANESSA: Creatinine pre op 1.53; now Cr back to baseline (<1) received IV Fluids post op Hold nephrotoxic agents; including Lisinopril HLD: Takes Zetia and simvastatin Depression: Takes Wellbutrin; continue Gout: Takes allopurinol; continue Disposition: PCP: Dr. Reggie Liz CODE STATUS: Full code VTE prophylaxis: Per admitting team Admission and Anticipated Discharge Date Admission Date: March 22, 2023 Subjective Pt seen in follow up of med consult for s/p lumbar spinal surgery Currently sitting up in chair in NAD, eating lunch Overnight w/ nausea - pt believs from pain meds, nausea is now resolved reports some back pain, especially when standing up, but says when walking does not have much pain Denies any fever, chills, chest pain, shortness of breath or abd. pain Review of Systems Review of Systems: All systems reviewed & are unremarkable except as noted in Subjective Physical Exam Physical Exam: General: elderly F in NAD HEENT: head normocephalic, moist mucus membranes CV: S1/S2, (-) M/G/R, (-) edema Resp: Lungs CTA in all zavala. On RA GI: Abdomen S/NT/ND, Ax4 bowel sounds, (-) CVA tenderness Musculoskeletal: 5/5 B/L UE strength, 5/5 B/L LE strength. No gait disturbance Neuro: AAOx4, PERRL, speech fluent, no facial asymmetry, moves extremities Skin: (-) rashes , (-) erythema. Lower back w/intact dressing. Psych: euthymic mood Results & Data Results & Data Vital Signs (Past 12 Hours) Vital Signs Temp Pulse Resp BP Pulse Ox O2 Del Method 03/24/23 07:12 36.9 C 80 15 121/77 97 Room Air Laboratory Results 03/24/23 03/24/23 Range/Units 07:20 07:20 WBC 10.54 (4.8-10.8) K/ul RBC 2.96 L (4.20-5.40) M/uL Hgb 9.6 L (12.0-16.0) g/dl Hct 27.9 L (37.0-47.0) % MCV 94.3 (80.0-100.0) fL MCH 32.4 (25.0-34.0) pg MCHC 34.4 (32.0-36.0) g/dL RDW Std Deviation 46.3 (36.4-46.3) fL RDW Coeff of Agnieszka 13.2 (11.5-14.5) % Plt Count 219 (130-400) K/uL MPV 10.6 (9.4-12.4) fL Sodium 137 (136-145) mmol/L Potassium 4.2 (3.5-5.1) mmol/L Chloride 104 (98-107) mmol/L Carbon Dioxide 28 (21-32) mmol/L Anion Gap 5 (3-11) BUN 29 H (6-23) mg/dl Creatinine 0.98 (0.6-1.2) mg/dl Est Cr Clr Drug Dosing 49.3 ml/min Est GFR ( Amer) 66.8 ml/min Est GFR (Non-Af Amer) 57.6 ml/min BUN/Creatinine Ratio 29.6 H (10-20) Glucose 90 (70-99(Fasting)) mg/dl Calcium 9.2 (8.6-10.3) mg/dl Magnesium 2.1 (1.7-2.4) mg/dl Medications Administered Current Inpatient Medications Acetaminophen (Acetaminophen 500 Mg Tab) 1,000 mg PO Q8H PRN PRN Reason: MILD Pain Scale 1,2,3 & Pre PT Stop: 04/21/23 13:59 Last Admin: 03/23/23 14:57 Dose: 1,000 mg Al Hydrox/Mg Hydrox/Simethicone (Aluminum/Magnesium Susp 30 Ml Udc) 30 ml PO Q6H PRN PRN Reason: Dyspepsia Stop: 04/21/23 10:52 Allopurinol (Allopurinol 100 Mg Tab) 100 mg PO BID [facility] Stop: 04/21/23 20:59 Last Admin: 03/24/23 08:54 Dose: 100 mg Aspirin (Aspirin 81 Mg Ectab) 81 mg PO QAM [facility] Stop: 04/22/23 08:59 Last Admin: 03/24/23 08:54 Dose: 81 mg Bisacodyl (Bisacodyl 10 Mg Supp) 10 mg [place] DAILY PRN PRN Reason: Constipation Stop: 04/21/23 10:52 Bupropion HCl (Bupropion Sr 150 Mg Tabcr) 150 mg PO BID [facility] Stop: 04/21/23 20:59 Last Admin: 03/24/23 08:54 Dose: 150 mg Calcium Carbonate (Calcium Carbonate 1250mg Tab) 1,250 mg PO BID [facility] Stop: 04/21/23 20:59 Last Admin: 03/24/23 08:54 Dose: 1,250 mg Diphenhydramine HCl (Diphenhydramine Capsule 25 Mg Cap) 25 mg PO Q6H PRN PRN Reason: Allergic Rhinitis/Insomnia Stop: 04/21/23 10:52 Ezetimibe (Ezetimibe 10 Mg Tab) 10 mg PO QPM [facility] Stop: 04/21/23 20:59 Last Admin: 03/23/23 20:00 Dose: 10 mg Famotidine (Famotidine 20 Mg Tab) 20 mg PO Q12H PRN PRN Reason: Dyspepsia Stop: 04/21/23 10:52 Hydromorphone HCl (Hydromorphone Inj 0.5 Mg/0.5 Ml Syr) 0.5 mg IV Q3H PRN PRN Reason: MODERATE Pain (Scale 4,5,6) & Pre PT Stop: 04/05/23 10:52 Hydromorphone HCl (Hydromorphone Inj 1 Mg/Ml Syringe) 1 mg IV Q3H PRN PRN Reason: SEVERE Pain (Scale 7,8,9,10) Stop: 04/05/23 10:52 Last Admin: 03/23/23 02:11 Dose: 1 mg Hydroxyzine HCl (Hydroxyzine Hcl 25 Mg Tab) 25 mg PO Q8H PRN PRN Reason: Anxiety Stop: 04/21/23 10:52 Promethazine HCl 12.5 mg/ (Sodium Chloride) 50.5 mls @ 202 mls/hr IV Q6H PRN PRN Reason: Nausea &/or Vomiting Stop: 04/21/23 10:52 Acetaminophen (Ofirmev) 1,000 mg in 100 mls @ 400 mls/hr IV Q8H PRN PRN Reason: Pain Rating 1-3 & Pre PT Stop: 03/25/23 13:59 Dexamethasone 6 mg/ Syringe 1.5 mls @ 1 mls/min IV DAILY [facility] Stop: 03/25/23 09:02 Last Admin: 03/24/23 08:54 Dose: 1 mls/min Influenza Virus Vaccine Quadrival (Do Not Administer Flu Vaccine) 1 each N/A PRN PRN PRN Reason: Notification Stop: 04/21/23 10:52 Lisinopril (Lisinopril 10 Mg Tab) 10 mg PO QAM [facility] Stop: 04/22/23 08:59 Lorazepam (Lorazepam 0.5 Mg Tab) 0.5 mg PO Q8H PRN PRN Reason: Sedation/Anxiety Stop: 04/21/23 10:52 Lorazepam (Lorazepam 2 Mg/1 Ml Vial) 0.5 mg IV Q8H PRN PRN Reason: Sedation/Anxiety Stop: 04/21/23 10:52 Magnesium Hydroxide (Magnesium Hydroxide Susp 30 Ml Udc) 30 ml PO Q24H PRN PRN Reason: Constipation Stop: 04/21/23 10:52 Metoclopramide HCl (Metoclopramide Hcl Inj 5 Mg/Ml 2 Ml Vial) 10 mg IV Q6H PRN PRN Reason: Nausea &/or Vomiting Stop: 04/21/23 10:52 Naloxone HCl (Naloxone Hcl 0.4 Mg/1 Ml Vial/Carp) 0.1 mg IV Q5M PRN PRN Reason: Oversedation/Resp depression Stop: 04/21/23 10:52 Ondansetron HCl (Ondansetron Inj 2 Mg/Ml 2 Ml Vial) 4 mg IV Q6H PRN PRN Reason: Nausea &/or Vomiting Stop: 04/21/23 10:52 Ondansetron HCl (Ondansetron 4 Mg Od Tab) 4 mg PO Q6H PRN PRN Reason: Nausea Stop: 04/21/23 10:52 Oxycodone HCl (Oxycodone Hcl Ir 5 Mg Tab (Immediate Release)) 5 - 10 mg PO Q4H PRN PRN Reason: Pain & Pre PT Stop: 04/05/23 10:52 Last Admin: 03/23/23 19:59 Dose: 10 mg Pneumococcal Polyvalent Vaccine (Do Not Administer Pneumococcal Vaccine) 1 each N/A PRN PRN PRN Reason: Notification Stop: 04/21/23 10:52 Polyethylene Glycol (Polyethylene (Miralax) 17 Gm Pack) 17 gm PO Q6 [facility] Stop: 04/22/23 05:59 Last Admin: 03/24/23 05:47 Dose: 17 gm Senna/Docusate Sodium (Docusate Sodium/Senna 50/8.6mg Tab) 2 tab PO HS [facility] Stop: 04/21/23 20:59 Last Admin: 03/23/23 20:01 Dose: 2 tab Simvastatin (Simvastatin 40 Mg Tab) 40 mg PO HS [facility] Stop: 04/21/23 20:59 Last Admin: 03/23/23 20:00 Dose: 40 mg Sodium Biphosphate/Sodium Phosphate (Sod Phosphate/Sod Biphosphate Enema 132 Ml Btl) 132 ml MI ONE PRN PRN Reason: Constipation Stop: 04/21/23 10:52 Tramadol HCl (Tramadol Hcl 50 Mg Tablet) 50 - 100 mg PO Q4H PRN PRN Reason: Moderate-Severe pain & Pre PT Stop: 04/21/23 10:52 Last Admin: 03/24/23 05:49 Dose: 100 mg
[2023-03-24] MEDS: ACETAMINOPHEN 500 MG TAB PO PRN (12:39)
[2023-03-24] MEDS: oxyCODONE HCL IR 5 MG TAB (IMMEDIATE RELEASE) PO PRN (17:54)
[2023-03-24] MEDS: SIMVASTATIN 40 MG TAB PO SCH (20:48)
[2023-03-24] MEDS: DOCUSATE SODIUM/SENNA 50/8.6MG TAB PO SCH (20:49)
[2023-03-24] MEDS: EZETIMIBE 10 MG TAB PO SCH (20:49)
[2023-03-25] MEDS: oxyCODONE HCL IR 5 MG TAB (IMMEDIATE RELEASE) PO PRN (04:06)
--- NOTE | 2023-03-25 07:48 | Discharge Summary ---
Date of Service March 25, 2023 Admission HPI Per Admitting Provider This is a 72-year-old female presents with chronic persistent back and leg pain after failing course of nonoperative care is here for surgical invention. Discharge Data Consultations 03/22/23 10:53 Consult Hospitalist Routine Procedures Performed Operation Date: 03/22/23 07:45 Actual Procedures p L1-L2 Decompression and Fusion with Spinal Cord Monitoring(Not Applicable) - Gabo Varela, Hospital Course (1) Lumbar disc herniation with radiculopathy: Patient is a pleasant 72-year-old female with history physical examination and radiographic images consistent with the above-mentioned diagnosis. This reason she was brought to the operating room and undergone a lumbar decompression and fusion at L1 to with Dr. Varela. She was then transferred to PACU in stable condition. She left the operating room with TARA drain in place. She was seen by physical therapy in the orthopedic floor postop day #1. Throughout her hospital course her abdomen remained supple and nontender calves remained supple and nontender. She progressed well with physical therapy and on postoperative day 3 she is deemed safe for home discharge. Her discharge instructions were to avoid any full bending at the waist. She should not anything heavier than 5 to [address] not drive until she sees us in the office in approximately 2 weeks. The dressing needs to be changed daily until there is no drainage once there is no drainage she may begin showering. If she develops any increased pain drainage from the incision fevers or chills she will contact our office otherwise she will be seen in 2 weeks.
[2023-03-25] MEDS: dexAMETHasone 6 MG in SYRINGE 0 ML IV SCH (08:52)
[2023-03-25] MEDS: buPROPion SR 150 MG TABCR PO SCH (08:52)
[2023-03-25] MEDS: allopurinoL 100 MG TAB PO SCH (08:52)
[2023-03-25] MEDS: ASPIRIN 81 MG ECTAB PO SCH (08:52)
[2023-03-25] MEDS: CALCIUM CARBONATE 1250MG TAB PO SCH (08:52)
--- NOTE | 2023-03-25 09:25 | Hospitalist Progress Note ---
Date of Service March 25, 2023 Assessment & Plan (1) Lumbar disc herniation with radiculopathy: (2) Hypertension: (3) Dyslipidemia: (4) Depression: (5) Gout: (6) VANESSA (acute kidney injury): Plan Ms. Duran is a 72 year old female that presents to the [facility] for planned surgical procedure under the care of Dr. Varela; decompression and fusion of L1-L2 after failed conservative management as an outpatient. Intraoperatively, EBL 200 mL. Additional past medical history includes HTN, HLD, depression, and gout. Patient underwent additional decompression and fusion L4-L5 10 years ago under the care of Dr. Garcia. VANESSA noted on pre op labs from 03/15/23; creatinine 1.53. Up until surgery patient was taking tramadol and Voltaren gel for conservative treatment measures. Lumbar disc herniation with radiculopathy: s/p decompression and fusion L1-L2 under the care of Dr. Varela. Per ortho for pain control, wound care, anticoagulation and activities. continue incentive spirometry, demonstrated appropriate use PT/OT when appropriate Acute blood loss anemia/ vs. dilutional pre-op hgb 12, post op 9.5 current hgb 9.6 HTN: Takes lisinopril; will held due to VANESSA and lower BP Post op BP 96/52 now 144/84 - can resume lisinopril VANESSA: Creatinine pre op 1.53; now Cr back to baseline (<1) received IV Fluids post op Hold nephrotoxic agents - can resume lisinopril HLD: Takes Zetia and simvastatin Depression: Takes Wellbutrin; continue Gout: Takes allopurinol; continue Disposition: PCP: Dr. Reggie Liz CODE STATUS: Full code VTE prophylaxis: Per admitting team Admission and Anticipated Discharge Date Admission Date: March 22, 2023 Subjective Pt seen in follow up of med consult for s/p lumbar spinal surgery Currently ambulating w/o difficulty Reports feeling much better, no nausea, she is tolerating diet, had a BM Denies any fever, chills, chest pain, shortness of breath or abd. pain Review of Systems Review of Systems: All systems reviewed & are unremarkable except as noted in Subjective Physical Exam Physical Exam: General: elderly F in NAD HEENT: head normocephalic, moist mucus membranes CV: S1/S2, (-) M/G/R, (-) edema Resp: Lungs CTA in all zavala. On RA GI: Abdomen S/NT/ND, Ax4 bowel sounds, (-) CVA tenderness Musculoskeletal: 5/5 B/L UE strength, 5/5 B/L LE strength. No gait disturbance Neuro: AAOx4, PERRL, speech fluent, no facial asymmetry, moves extremities Skin: (-) rashes , (-) erythema. Lower back w/intact dressing. Psych: euthymic mood Results & Data Results & Data Vital Signs (Past 12 Hours) Vital Signs Temp Pulse Resp BP Pulse Ox O2 Del Method 03/25/23 07:44 37.2 C 86 18 144/84 H 96 Room Air Medications Administered Current Inpatient Medications Acetaminophen (Acetaminophen 500 Mg Tab) 1,000 mg PO Q8H PRN PRN Reason: MILD Pain Scale 1,2,3 & Pre PT Stop: 04/21/23 13:59 Last Admin: 03/24/23 12:39 Dose: 1,000 mg Al Hydrox/Mg Hydrox/Simethicone (Aluminum/Magnesium Susp 30 Ml Udc) 30 ml PO Q6H PRN PRN Reason: Dyspepsia Stop: 04/21/23 10:52 Allopurinol (Allopurinol 100 Mg Tab) 100 mg PO BID [facility] Stop: 04/21/23 20:59 Last Admin: 03/25/23 08:52 Dose: 100 mg Aspirin (Aspirin 81 Mg Ectab) 81 mg PO QAM [facility] Stop: 04/22/23 08:59 Last Admin: 03/25/23 08:52 Dose: 81 mg Bisacodyl (Bisacodyl 10 Mg Supp) 10 mg [place] DAILY PRN PRN Reason: Constipation Stop: 04/21/23 10:52 Bupropion HCl (Bupropion Sr 150 Mg Tabcr) 150 mg PO BID [facility] Stop: 04/21/23 20:59 Last Admin: 03/25/23 08:52 Dose: 150 mg Calcium Carbonate (Calcium Carbonate 1250mg Tab) 1,250 mg PO BID [facility] Stop: 04/21/23 20:59 Last Admin: 03/25/23 08:52 Dose: 1,250 mg Diphenhydramine HCl (Diphenhydramine Capsule 25 Mg Cap) 25 mg PO Q6H PRN PRN Reason: Allergic Rhinitis/Insomnia Stop: 04/21/23 10:52 Ezetimibe (Ezetimibe 10 Mg Tab) 10 mg PO QPM [facility] Stop: 04/21/23 20:59 Last Admin: 03/24/23 20:49 Dose: 10 mg Famotidine (Famotidine 20 Mg Tab) 20 mg PO Q12H PRN PRN Reason: Dyspepsia Stop: 04/21/23 10:52 Hydromorphone HCl (Hydromorphone Inj 0.5 Mg/0.5 Ml Syr) 0.5 mg IV Q3H PRN PRN Reason: MODERATE Pain (Scale 4,5,6) & Pre PT Stop: 04/05/23 10:52 Hydromorphone HCl (Hydromorphone Inj 1 Mg/Ml Syringe) 1 mg IV Q3H PRN PRN Reason: SEVERE Pain (Scale 7,8,9,10) Stop: 04/05/23 10:52 Last Admin: 03/23/23 02:11 Dose: 1 mg Hydroxyzine HCl (Hydroxyzine Hcl 25 Mg Tab) 25 mg PO Q8H PRN PRN Reason: Anxiety Stop: 04/21/23 10:52 Promethazine HCl 12.5 mg/ (Sodium Chloride) 50.5 mls @ 202 mls/hr IV Q6H PRN PRN Reason: Nausea &/or Vomiting Stop: 04/21/23 10:52 Acetaminophen (Ofirmev) 1,000 mg in 100 mls @ 400 mls/hr IV Q8H PRN PRN Reason: Pain Rating 1-3 & Pre PT Stop: 03/25/23 13:59 Influenza Virus Vaccine Quadrival (Do Not Administer Flu Vaccine) 1 each N/A PRN PRN PRN Reason: Notification Stop: 04/21/23 10:52 Lisinopril (Lisinopril 10 Mg Tab) 10 mg PO QAM [facility] Stop: 04/22/23 08:59 Lorazepam (Lorazepam 0.5 Mg Tab) 0.5 mg PO Q8H PRN PRN Reason: Sedation/Anxiety Stop: 04/21/23 10:52 Lorazepam (Lorazepam 2 Mg/1 Ml Vial) 0.5 mg IV Q8H PRN PRN Reason: Sedation/Anxiety Stop: 04/21/23 10:52 Magnesium Hydroxide (Magnesium Hydroxide Susp 30 Ml Udc) 30 ml PO Q24H PRN PRN Reason: Constipation Stop: 04/21/23 10:52 Metoclopramide HCl (Metoclopramide Hcl Inj 5 Mg/Ml 2 Ml Vial) 10 mg IV Q6H PRN PRN Reason: Nausea &/or Vomiting Stop: 04/21/23 10:52 Naloxone HCl (Naloxone Hcl 0.4 Mg/1 Ml Vial/Carp) 0.1 mg IV Q5M PRN PRN Reason: Oversedation/Resp depression Stop: 04/21/23 10:52 Ondansetron HCl (Ondansetron Inj 2 Mg/Ml 2 Ml Vial) 4 mg IV Q6H PRN PRN Reason: Nausea &/or Vomiting Stop: 04/21/23 10:52 Ondansetron HCl (Ondansetron 4 Mg Od Tab) 4 mg PO Q6H PRN PRN Reason: Nausea Stop: 04/21/23 10:52 Oxycodone HCl (Oxycodone Hcl Ir 5 Mg Tab (Immediate Release)) 5 - 10 mg PO Q4H PRN PRN Reason: Pain & Pre PT Stop: 04/05/23 10:52 Last Admin: 03/25/23 04:06 Dose: 5 mg Pneumococcal Polyvalent Vaccine (Do Not Administer Pneumococcal Vaccine) 1 each N/A PRN PRN PRN Reason: Notification Stop: 04/21/23 10:52 Senna/Docusate Sodium (Docusate Sodium/Senna 50/8.6mg Tab) [address] tab [address] [facility] Stop: 04/21/23 20:59 Last Admin: 03/24/23 20:49 Dose: Not Given Simvastatin (Simvastatin 40 Mg Tab) 40 mg PO [facility] Stop: 04/21/23 20:59 Last Admin: 03/24/23 20:48 Dose: 40 mg Sodium Biphosphate/Sodium Phosphate (Sod Phosphate/Sod Biphosphate Enema 132 Ml Btl) 132 ml [place] ONE PRN PRN Reason: Constipation Stop: 04/21/23 10:52 Tramadol HCl (Tramadol Hcl 50 Mg Tablet) 50 - 100 mg PO Q4H PRN PRN Reason: Moderate-Severe pain & Pre PT Stop: 04/21/23 10:52 Last Admin: 03/24/23 21:52 Dose: 50 mg
[2023-03-25] MEDS: traMADol HCL 50 MG TABLET PO PRN (10:49)
== END 2023-03-25 11:13 | disposition home or self-care (01) | DRG 454 ==
LOC: ASU 06:18 → 3N 09:44